=== PATIENT | male | born 1960 | race Two or more races ===

== ENCOUNTER 2019-07-09 14:32 | Inpatient (IN) | payer MEDICARE, MEDICAID ==
[~2019-07-09] VITALS: Ht 165.1 cm; Wt 67.6 kg
[2019-07-09] MEDS ORDERED: BLOOD SUGAR DIAGNOSTIC 1 EACH STRIP IN ONE (17:00)
[2019-07-09] MEDS ORDERED: MAGNESIUM HYDROXIDE 30 ML UDC PO PRN (17:00)
[2019-07-09] MEDS ORDERED: MAG HYDROX/AL HYDROX/SIMETH 30 ML UDC PO PRN (17:00)
[2019-07-09 17:43] VITALS: BP 145/99
[2019-07-09 17:51] LABS: ALBUMIN 3.4 g/dL (3.4-5.0); BILIRUBIN,TOTAL 0.5 mg/dL (0.2-1.0); CALCIUM, SERUM 8.5 mg/dL (8.5-10.1); CREATININE 0.9 mg/dL (0.6-1.3); POTASSIUM 4.3 mmol/L (3.5-5.1); TOTAL PROTEIN, SERUM 6.6 g/dL (6.4-8.2)
--- NOTE | 2019-07-09 18:42 | NUR ---
GPS/RN-NOTES ADMITTED 58 YEARS OLD CYMRO MALE PATIENT ON 5150 FOR GD ADULT. PATIENT WAS UNDER THE CARE OF DR. ANDERSON( PSYCHIATRIST) AND DR. WREN ( CERTIFIED NURSES' AIDE) BOTH MADE AWARE OF THE ADMISSION. UPON FACE TO FACE ASSESSMENT PATIENT ALERT ORIENTED X2 AMBULATORY WITH STEADY GAIT.HOLD WAS VERIFIED AND ADVISEMENT GIVEN TO THE PATIENT .PATIENT DENIES SI/HI AT THIS TIME. PATIENT'S RIGHT GIVEN AND WAS DISCUSS WITH UNDERSTANDING. CONTRABAND AND FULL BODY ASSESSMENT DONE. PATIENT WAS ORIENTED IN THE UNIT AND UNIT POLICIES.PATIENT'S JASON BAILEY ([phone]) WAS AWARE OF PATIENT ADMISSION. MRSA DONE AND SENT TO LAB. WILL ENDORSE TO INCOMING NURSE FOR THE PROCESS PLAN AND CONTINUITY OF CARE .
[2019-07-09 20:00] VITALS: BP 127/62
[2019-07-10] MEDS: TEMAZEPAM 7.5 MG CAPSULE PO PRN ×2 (00:39→22:33)
[2019-07-10] MEDS ORDERED: ASPI-1169 PO (07:13)
[2019-07-10] MEDS ORDERED: LATA2.5D7 EACHEYE (07:13)
[2019-07-10] MEDS ORDERED: LOSA50TA39 PO (07:13)
[2019-07-10 10:15] LABS: CALCIUM, SERUM 9.1 mg/dL (8.5-10.1); CREATININE 1.2 mg/dL (0.6-1.3); POTASSIUM 4.7 mmol/L (3.5-5.1)
[2019-07-10 10:21] LABS: CHOLESTEROL 159 mg/dL (<200); HDL CHOLESTEROL 55 mg/dL (40-60); LDL 98 mg/dL (0-99); TRIGLYCERIDES 55 mg/dL (30-150)
[2019-07-10] MEDS: OLANZAPINE 5 MG TABLET PO SCH ×2 (13:21→22:32)
[2019-07-10 16:00] VITALS: BP_SYST 100; BP_SYST 137; BP_DIAS 55; BP_DIAS 68
[2019-07-10 20:00] VITALS: BP 123/73
[2019-07-11 07:49] LABS: BASOPHILS # (AUTO) 0.1 /CMM (0.0-0.2); EOSINOPHILS % (AUTO) 2.3 % (0.0-6.0); HEMATOCRIT 42 % (39-51); HEMOGLOBIN 14.4 g/dL (13.5-17.5); LYMPHOCYTES # (AUTO) 2.1 /CMM (0.8-4.8); LYMPHOCYTES % (AUTO) 33.4 % (20.0-44.0); MEAN CORPUSCULAR HGB CONC 35 g/dl (31.0-36.0); MEAN CORPUSCULAR VOLUME 92 fL (80-96); MONOCYTES # (AUTO) 0.6 /CMM (0.1-1.30); MONOCYTES % (AUTO) 9.4 % (2.0-12.0); NEUTROPHILS # (AUTO) 3.4 /CMM (1.8-8.9); NEUTROPHILS % (AUTO) 53.9 % (43.0-81.0); PLATELET COUNT (AUTO) 155 /CMM (150-450); RED BLOOD CELL COUNT(AUTO) 4.54 MIL/uL (4.5-6.0); WHITE BLOOD COUNT (AUTO) 6.3 K/uL (4.3-11.0)
[2019-07-11 08:00] VITALS: BP 148/72
[2019-07-11 08:14] LABS: ALBUMIN 3.4 g/dL (3.4-5.0); CREATININE 0.9 mg/dL (0.6-1.3); POTASSIUM 4.2 mmol/L (3.5-5.1); TOTAL PROTEIN, SERUM 6.5 g/dL (6.4-8.2)
[2019-07-11] MEDS: OLANZAPINE 5 MG TABLET PO SCH (08:36)
[2019-07-11 16:00] VITALS: BP 112/65
[2019-07-11 20:00] VITALS: BP 108/54
[2019-07-11] MEDS: LATANOPROST EYE DROP 0.005% 2.5 ML BOTTLE EACHEYE SCH (21:06)
[2019-07-12] MEDS: TEMAZEPAM 7.5 MG CAPSULE PO PRN ×2 (00:38→21:24)
[2019-07-12] MEDS: LORAZEPAM 0.5 MG TABLET PO PRN ×3 (03:01→23:41)
[2019-07-12 08:00] VITALS: BP 129/75
[2019-07-12] MEDS: LOSARTAN POTASSIUM 50 MG TABLET PO SCH (08:36)
[2019-07-12] MEDS: OLANZAPINE 5 MG TABLET PO SCH ×3 (08:36→16:08)
[2019-07-12] MEDS: ASPIRIN 81 MG TAB.CHEW PO SCH (08:36)
--- NOTE | 2019-07-12 13:12 | NUR ---
Initial Discharge Plan: Pt. currently resides at [facility] located at [address] [place] [address]; . Per pt's sister Leeann, she would like for the pt. to go to a different facility stating the current facility is unable to meet pt's needs. Leeann would like a facility closer to [place], where she resides. WILLIAM will work with the pt and the MD regarding appropriate discharge planning. SW will form a safe and proper discharge plan. WILLIAM did contact [facility] and spoke with Vilma who informed SW they will accept the pt. back to their facility, if pt. chooses to return.
[2019-07-12 16:00] VITALS: BP 120/65
[2019-07-12 19:40] VITALS: BP 128/69
[2019-07-12] MEDS: LATANOPROST EYE DROP 0.005% 2.5 ML BOTTLE EACHEYE SCH (21:25)
[2019-07-13 08:00] VITALS: BP_SYST 127; BP_SYST 128; BP_DIAS 50; BP_DIAS 58
[2019-07-13] MEDS: LORAZEPAM 0.5 MG TABLET PO PRN (08:51)
[2019-07-13] MEDS: ASPIRIN 81 MG TAB.CHEW PO SCH (08:51)
[2019-07-13] MEDS: LOSARTAN POTASSIUM 50 MG TABLET PO SCH (08:51)
[2019-07-13] MEDS: OLANZAPINE 5 MG TABLET PO SCH ×3 (08:51→16:58)
--- NOTE | 2019-07-13 18:35 | NUR ---
Pt found laying on the floor in the dining room. staffed had asked patient several times to get up and lay in his bed if he is going to lay down but he refused get up. staff trying to help him up when he suddenly became combative; started punching, kicking staff. pt had to be physically restraint for his safety and the staff. it took several eladio staff and a professional security officer to carefully get him up and assist him to jose miguel-chair. once patient was seated in the eladio-chair patient became calm and passive. pt currently resting at this time. assessed patient for injury; no injury has occurred during the restraint. dr. aida arredondo.
--- NOTE | 2019-07-13 19:30 | NUR ---
GPS RN NOTE, RECEIVED PATIENT AWAKE AND IN RODRIGO CHAIR, NO S/S OR COMPLAINTS OF PAIN AT THIS TIME. PATIENT IS DISPLAYING NO S/S OF APPARENT DISTRESS AT THIS TIME. PATIENT BREATHING IS UNLABORED WITH EQUAL RISE AND FALL OF THE CHEST. PATIENT IS ALERT AND ORIENTED X 2 ON ROOM AIR WITH A SPO2 94 %. PATIENT IS COMPLIANT WITH MEDICATION, DISORGANIZED, CONFUSED, SUSPICIOUS, PARANOID, AGGRESSIVE, AND NEEDS CONSTANT REORIENTATION. PATIENT DENIES SUICIDE IDEATIONS AND HOMICIDAL IDEATIONS AT THIS TIME. PATIENT HAS NO NEEDS AT THIS TIME. PATIENT EDUCATED ON THE USE OF THE CALL REGALADO. PATIENT BED SIDE RAILS UP X 2 FOR SAFETY, BED IS LOCKED AND LOW. WILL CONTINUE TO MONITOR Q15 MIN WITH THE HELP OF STAFF TO MAINTAIN SAFETY.
[2019-07-13 20:13] VITALS: BP 129/64
[2019-07-13] MEDS: ACETAMINOPHEN 325 MG TABLET PO PRN (20:17)
--- NOTE | 2019-07-13 20:17 | NUR ---
GPS RN NOTE, PATIENT HAS A COMPLAINT OF CHRONIC LEFT SHOULDER PAIN AT 2 OUT OF 10 ON THE PAIN SCALE AND IS REQUESTING TYLENOL AT THIS TIME. PATIENT VITAL SIGNS ARE STABLE. GAVE TYLENOL 650 MG PO Q6HR PRN ORDERED. WILL REASSESS FOR PAIN AND I WILL CONTINUE TO MONITOR THIS PATIENT.
[2019-07-13] MEDS: LATANOPROST EYE DROP 0.005% 2.5 ML BOTTLE EACHEYE SCH (22:05)
[2019-07-13] MEDS: TEMAZEPAM 7.5 MG CAPSULE PO PRN (23:05)
--- NOTE | 2019-07-13 23:05 | NUR ---
GPS RN NOTE, PATIENT HAS A COMPLAINT OF NOT BEING ABLE TO SLEEP AND IS REQUESTING RESTORIL AT THIS TIME. PATIENT VITAL SIGNS ARE STABLE. GAVE RESTORIL 7.5MG PO HS PRN. WILL REASSESS FOR INSOMNIA AND I WILL CONTINUE TO MONITOR THIS PATIENT.
[2019-07-14] MEDS: ASPIRIN 81 MG TAB.CHEW PO SCH (09:00)
[2019-07-14] MEDS: LOSARTAN POTASSIUM 50 MG TABLET PO SCH (09:00)
[2019-07-14] MEDS: OLANZAPINE 5 MG TABLET PO SCH ×3 (09:00→17:00)
[2019-07-14] MEDS: risperiDONE-M 0.5 MG TAB.RAPDIS PO SCH ×2 (10:00→17:00)
--- NOTE | 2019-07-14 10:08 | NUR ---
GPS/RN-NOTES PATIENT REFUSED ALL 0900AM MEDICATIONS ,VITAL SIGNS TAKEN AND REFUSED BREAKFAST DESPITE ENCOURAGEMENT AND EXPLAINED RISK AND BENEFITS. PATIENT GETS ANGRY AND STATED" NO". OFFERED X3
--- NOTE | 2019-07-14 14:00 | NUR ---
GROUP NOTE: SW encouraged pt to participate in group therapy on this present day to discuss "positive coping skills." Pt has Dementia and unable to engage in a meaningful conversation. Pt is only alert to his name with disorganized thought process and speech. Pt unable to participate in a group discussion.
--- NOTE | 2019-07-14 16:15 | NUR ---
WILLIAM faxed a referral to [facility] to the fax number: [phone].
--- NOTE | 2019-07-14 16:20 | NUR ---
WILLIAM called the pts sister, Leeann , and informed her that the SW sent a referral to [facility].
--- NOTE | 2019-07-14 17:37 | NUR ---
GPS/RN-NOTES PATIENT STILL REFUSED ALL 1700 MEDICATIONS AND REFUSED TO EAT DESPITE ENCOURAGEMENT.EXPLAINED RISK AND BENEFITS. OFFERED X3.PATIENT ISOLATIVE IN THE ROOM PREFERS TO SLEEP DURING THE SHIFT.CHARGE NURSE AWARE .
[2019-07-14 20:12] VITALS: BP_SYST 134; BP_SYST 148; BP_DIAS 75; BP_DIAS 80
[2019-07-14] MEDS: LATANOPROST EYE DROP 0.005% 2.5 ML BOTTLE EACHEYE SCH (21:41)
[2019-07-14] MEDS: ACETAMINOPHEN 325 MG TABLET PO PRN (23:30)
[2019-07-14] MEDS: TEMAZEPAM 7.5 MG CAPSULE PO PRN (23:30)
[2019-07-15 08:00] VITALS: BP 131/80
--- NOTE | 2019-07-15 08:17 | NUR ---
Jo ([phone]) from [facility] called the SW and stated that the pt was accepted to their facility.
--- NOTE | 2019-07-15 08:26 | NUR ---
Probable Cause Hearing Notification: WILLIAM called the pts sister, Leeann , and left her a voicemail informing her that the pt has a PC hearing today and explained what the hearing entails. WILLIAM also informed her that the pt was accepted to [facility].
[2019-07-15] MEDS: ASPIRIN 81 MG TAB.CHEW PO SCH (08:41)
[2019-07-15] MEDS: LOSARTAN POTASSIUM 50 MG TABLET PO SCH (08:41)
[2019-07-15] MEDS: OLANZAPINE 5 MG TABLET PO SCH ×3 (08:41→16:27)
[2019-07-15] MEDS: risperiDONE-M 0.5 MG TAB.RAPDIS PO SCH ×2 (08:41→16:27)
--- NOTE | 2019-07-15 08:47 | NUR ---
RN NOTE: PATIENT WAS UNABLE TO SWALLOW PILLS. PULLED OUT AGAIN FROM [employer] TO ADMINISTER NOT GIVEN MEDS.
--- NOTE | 2019-07-15 15:11 | NUR ---
Group Note: SW encouraged pt to participate in group therapy on this present day to discuss "discharge planning" but the pt has dementia and unable to engage in a meaningful conversation. Pt is only alert to his name with disorganized thought process and speech. Pt is not able to participate in group therapy.
[2019-07-15 16:00] VITALS: BP 124/77
[2019-07-15 20:36] VITALS: BP 132/74
[2019-07-15] MEDS: LATANOPROST EYE DROP 0.005% 2.5 ML BOTTLE EACHEYE SCH (21:11)
[2019-07-15] MEDS: LORAZEPAM 0.5 MG TABLET PO PRN (23:06)
[2019-07-16] MEDS: TEMAZEPAM 7.5 MG CAPSULE PO PRN ×2 (01:10→22:30)
[2019-07-16 08:00] VITALS: BP 115/64
[2019-07-16] MEDS: ASPIRIN 81 MG TAB.CHEW PO SCH (08:55)
[2019-07-16] MEDS: LOSARTAN POTASSIUM 50 MG TABLET PO SCH (09:04)
[2019-07-16] MEDS: risperiDONE-M 0.5 MG TAB.RAPDIS PO SCH ×3 (09:04→16:39)
[2019-07-16] MEDS: BENZTROPINE MESYLATE (1 MG) 1 MG TABLET PO SCH ×3 (09:05→16:39)
[2019-07-16] MEDS: LORAZEPAM 0.5 MG TABLET PO SCH ×3 (09:05→16:39)
--- NOTE | 2019-07-16 15:12 | NUR ---
WILLIAM met with the pts sister and brother in law once the PC hearing was conducted and informed them of the results and stated that the pt is going to be discharged to [facility] on Friday.
--- NOTE | 2019-07-16 15:23 | NUR ---
GROUP NOTE: SW encouraged pt to participate in group therapy on this present day to discuss "discharge planning" Pt has Dementia and unable to engage in a meaningful conversation. Pt is only alert to his name with disorganized thought process and speech. Pt unable to participate in a group discussion.
[2019-07-16 16:00] VITALS: BP 119/69
[2019-07-16] MEDS: LORAZEPAM 0.5 MG TABLET PO PRN (19:49)
[2019-07-16 20:00] VITALS: BP 100/53
[2019-07-16] MEDS: LATANOPROST EYE DROP 0.005% 2.5 ML BOTTLE EACHEYE SCH (21:33)
[2019-07-17 08:00] VITALS: BP 114/99
[2019-07-17] MEDS: BENZTROPINE MESYLATE (1 MG) 1 MG TABLET PO SCH ×3 (09:09→16:12)
[2019-07-17] MEDS: ASPIRIN 81 MG TAB.CHEW PO SCH (09:09)
[2019-07-17] MEDS: risperiDONE-M 0.5 MG TAB.RAPDIS PO SCH ×3 (09:09→16:12)
[2019-07-17] MEDS: LORAZEPAM 0.5 MG TABLET PO SCH ×3 (09:09→16:12)
[2019-07-17] MEDS: LOSARTAN POTASSIUM 50 MG TABLET PO SCH (09:10)
[2019-07-17 16:00] VITALS: BP 105/68
[2019-07-17 20:00] VITALS: BP 102/65
[2019-07-17] MEDS: TEMAZEPAM 7.5 MG CAPSULE PO PRN (21:49)
[2019-07-17] MEDS: LATANOPROST EYE DROP 0.005% 2.5 ML BOTTLE EACHEYE SCH (21:50)
--- NOTE | 2019-07-18 06:31 | NUR ---
GPS-RN PATIENT IS COMBATIVE, AGITATED, HITTING AND STRIKING OUT AT STAFF WHILE CARE IS BEING PROVIDED. REDIRECTED PT'S BEHAVIOR. 0636- ADMINISTERED ATIVAN 0.5MG PO GIVEN ORDERED, TOLERATED WELL. APPROACHED IN A CALM AND UNHURRIED MANNER, EXPLAINED TO PATIENT PRIOR TO RENDERING CARE. ASSISTED PT. TO THE BATHROOM. PATIENT IS CALM AND COOPERATIVE AT THIS TIME. PATIENT MADE COMFORTABLE IN BED. SAFETY PRECAUTIONS IN PLACE. WILL CONTINUE TO MONITOR Q15MIN ROUNDS FOR SAFETY AND BEHAVIOR. WILL ENDORSE TO THE DAY SHIFT NURSE FOR CONTINUITY OF CARE.
[2019-07-18] MEDS: LORAZEPAM 0.5 MG TABLET PO PRN (06:36)
[2019-07-18 08:00] VITALS: BP 108/72
[2019-07-18] MEDS: ASPIRIN 81 MG TAB.CHEW PO SCH (08:13)
[2019-07-18] MEDS: LOSARTAN POTASSIUM 50 MG TABLET PO SCH (08:13)
[2019-07-18] MEDS: BENZTROPINE MESYLATE (1 MG) 1 MG TABLET PO SCH ×3 (08:13→17:00)
[2019-07-18] MEDS: risperiDONE-M 0.5 MG TAB.RAPDIS PO SCH ×3 (08:14→17:00)
[2019-07-18] MEDS: LORAZEPAM 0.5 MG TABLET PO SCH ×3 (08:14→17:00)
[2019-07-18 16:03] VITALS: BP 110/74
--- NOTE | 2019-07-18 19:17 | NUR ---
GPS/RN ENDORSED PT TO WALI DAWSON AND MARIE METCALF FOR CONTINUITY OF CARE. PT IS AROUSABLE ,REPORT MADE THAT PT MEDICATED IN AM ONLY TODAY D/T PT REFUSED MEDS FOR [address] ZAHIDA SERRANO.
[2019-07-18] MEDS: LATANOPROST EYE DROP 0.005% 2.5 ML BOTTLE EACHEYE SCH (21:40)
--- NOTE | 2019-07-18 21:40 | NUR ---
GPS-RN PATIENT REFUSED SCHEDULED EYE DROPS FOR TONIGHT AND REFUSED INITIAL VITAL SIGNS ASSESSMENT WELL DESPITE OF EDUCATION PROVIDED. PATIENT STILL REFUSED. WILL ENDORSE TO THE DAY SHIFT NURSE ACCORDINGLY.
[2019-07-19 08:00] VITALS: BP 97/58
--- NOTE | 2019-07-19 08:50 | NUR ---
WILLIAM called the pts sister, Leeann , and left a voicemail to inform her that the pt will be discharged to [facility] today.
--- NOTE | 2019-07-19 08:51 | NUR ---
WILLIAM contacted Radha ([phone]) from [facility] and informed him that the pt will be discharged today.
[2019-07-19 09:00] VITALS: BP 108/60
[2019-07-19] MEDS: LOSARTAN POTASSIUM 50 MG TABLET PO SCH (09:00)
[2019-07-19] MEDS: risperiDONE-M 0.5 MG TAB.RAPDIS PO SCH (09:22)
[2019-07-19] MEDS: BENZTROPINE MESYLATE (1 MG) 1 MG TABLET PO SCH (09:22)
[2019-07-19] MEDS: LORAZEPAM 0.5 MG TABLET PO SCH (09:22)
[2019-07-19] MEDS: ASPIRIN 81 MG TAB.CHEW PO SCH (09:22)
--- NOTE | 2019-07-19 09:33 | NUR ---
WILLIAM faxed updated notes to [facility] with attention to Radha to the fax number: [phone] and [phone].
--- NOTE | 2019-07-19 12:08 | NUR ---
GPS/RN-NOTES DISCHARGE PATIENT TODAY TO [facility] TODAY. DR. CARNEY AND DR. WREN AWARE AND AGREES OF PATIENT DISCHARGE.REPORT WAS GIVEN TO FACILITY DESK NURSE( TIMMY). PATIENT DID NOT VERBALIZE SI/HI,DENIES VISUAL/AUDITORY HALLUCINATIONS AT THE TIME OF DISCHARGE. PATIENT LEFT THE UNIT IN STABLE CONDITION ALERT ORIENTED X2 AMBULATORY STEADY GAIT.PATIENT WAS TELEPHONE ADVICE NURSE BY AMBULANCE VIA GURNEY WITH TWO STAFF ASSIST.PER PATIENT SISTER RUBIN MADE AWARE OF THE DISCHARGE. Addendum: 07/19/19 at 1523 by TIGIST MADRID RN IN ADDITION TO MY ABOVE NOTES, PATIENT'S SISTER RUBIN [id number] WILL COME TO TELEPHONE ADVICE NURSE PATIENT'S WATCH TODAY OR TOMORROW. THE WATCH IS KEPT IN THE NURSE STATION ON THE FLEXIBLE NANNY BOARD. Addendum: 07/19/19 at 1826 by TIGIST MADRID RN CORRECTIONS ON MY ABOVE NOTES DR. ANDERSON NOT DR. CARNEY (PSYCHIATRIST) AWARE OF THE DISCHARGE.
--- NOTE | 2019-07-19 15:11 | NUR ---
Discharge Note: Pt was discharged to [facility] ([facility]) located at [address] [place] [address]; ([phone]). Pt was transported via [facility] (Trip #[id number]) at 12PM. Pt�s sister, Leeann , has been notified of the discharge. Upon discharge, the pt appeared to be in a euthymic mood and presented with a calm affect. Pt denied both suicidal and homicidal ideation as well as auditory and visual hallucinations. Pt will continue to be under the care of his psychiatrist, Dr. Carmona, located at [address] [address]; and his coal drier operator, Dr. Amador, located at [address] [place] [address]; .
== END 2019-07-19 12:10 | DRG 885 ==
LOC: GPS 15:38
PROVIDERS: ADMIT Psychiatry & Neurology Psychosomatic Medicine; ATTEND Internal Medicine
DX: F29 Unspecified psychosis not due to a substance or known physiological condition (principal); F01.50 Vascular dementia, unspecified severity, without behavioral disturbance, psychotic disturbance, mood disturbance, and anxiety; E11.22 Type 2 diabetes mellitus with diabetic chronic kidney disease; I12.9 Hypertensive chronic kidney disease with stage 1 through stage 4 chronic kidney disease, or unspecified chronic kidney disease; E78.5 Hyperlipidemia, unspecified; F32.9 Major depressive disorder, single episode, unspecified; E11.42 Type 2 diabetes mellitus with diabetic polyneuropathy; M81.0 Age-related osteoporosis without current pathological fracture; I25.2 Old myocardial infarction; Z86.74 Personal history of sudden cardiac arrest; H40.10X0 Unspecified open-angle glaucoma, stage unspecified; Z88.0 Allergy status to penicillin; N18.2 Chronic kidney disease, stage 2 (mild)
CPT/HCPCS: 36415; 80048-TC; 80053-TC; 80061-TC; 82962-TC; 85025-TC; 87081-TC

== ENCOUNTER 2019-12-31 12:32 | Inpatient (IN) | payer MEDICARE, MEDICAID ==
[~2019-12-31] VITALS: Ht 180.3 cm; Wt 63.5 kg
[~2019-12-31 12:32] MED LIST: ASPI-1169 PO; LATA2.5D7 EACHEYE; LOSA50TA39 PO
--- NOTE | 2019-12-31 12:40 | NUR ---
BIB [facility] C/O MORE ALTERED than normal with dysuria. PATIENT A/OX1-2, BREATHING EVEN AND UNLABORED, NO SOB NOTED, NEEDS ATTENDED. KEPT COMFORTABLE.
[2019-12-31] MEDS ORDERED: DOCU-141 PO (13:01)
[2019-12-31] MEDS ORDERED: BENZ2TAB7 PO (13:01)
[2019-12-31] MEDS ORDERED: ASPI-1152 PO (13:01)
[2019-12-31] MEDS ORDERED: ACET-868 PO (13:01)
[2019-12-31] MEDS ORDERED: LORA-259 PO (13:01)
[2019-12-31] MEDS ORDERED: MAGN400O6 PO (13:01)
[2019-12-31] MEDS ORDERED: RISP0.2515 PO ×2 (13:01)
[2019-12-31] MEDS ORDERED: MAG30ORA PO (13:01)
[2019-12-31] MEDS ORDERED: ATOR40TA PO (13:01)
--- NOTE | 2019-12-31 13:25 | NUR ---
IV LINE ESTABLISHED, BLOOD DRAWN AND SENT TO LAB.
[2019-12-31 13:34] LABS: BASOPHILS # (AUTO) 0.1 /CMM (0.0-0.2); BASOPHILS % (AUTO) 0.9 % (0.0-2.0); EOSINOPHILS % (AUTO) 0.8 % (0.0-6.0); HEMATOCRIT 38 % (39-51); HEMOGLOBIN 13.2 g/dL (13.5-17.5); LYMPHOCYTES # (AUTO) 0.8 /CMM (0.8-4.8); LYMPHOCYTES % (AUTO) 12.5 % (20.0-44.0); MEAN CORPUSCULAR HGB CONC 35 g/dl (31.0-36.0); MEAN CORPUSCULAR VOLUME 91 fL (80-96); MONOCYTES # (AUTO) 0.5 /CMM (0.1-1.30); MONOCYTES % (AUTO) 7.4 % (2.0-12.0); NEUTROPHILS # (AUTO) 5.3 /CMM (1.8-8.9); NEUTROPHILS % (AUTO) 78.4 % (43.0-81.0); PLATELET COUNT (AUTO) 163 /CMM (150-450); RED BLOOD CELL COUNT(AUTO) 4.17 MIL/uL (4.5-6.0); WHITE BLOOD COUNT (AUTO) 6.8 K/uL (4.3-11.0)
--- NOTE | 2019-12-31 13:37 | NUR ---
URINE SAMPLE OBTAINED FROM PATIENT, SENT TO LAB.
[2019-12-31 13:44] LABS: APPEARANCE,URINE Clear (CLEAR); BILIRUBIN,URINE Negative (NEGATIVE); BLOOD, URINE Negative Ery/uL (NEGATIVE); COLOR,URINE Yellow (YELLOW); KETONES,URINE Negative (NEGATIVE); LEUKOCYTE ESTERASE ,URINE Negative (NEGATIVE); NITRITE, URINE Negative (NEGATIVE); PROTEIN,URINE Negative (NEGATIVE); UGLUCOSE Negative (NEGATIVE)
[2019-12-31 13:57] LABS: BACTERIA,URINE Few /HPF (None Seen); RBC,URINE 0-2 /HPF (0-2); SQUAMOUS EPITHELIAL CELL,UR Rare /HPF (None Seen); WBC,URINE 0-2 /HPF (0-3)
[2019-12-31 14:06] LABS: CALCIUM, SERUM 8.6 mg/dL (8.5-10.1); CARBON DIOXIDE 32 mmol/L (21-32); CHLORIDE 106 mmol/L (98-107); GLUCOSE 114 mg/dL (74-106); POTASSIUM 4.5 mmol/L (3.5-5.1); SODIUM SERUM 142 mmol/L (136-145); UREA NITROGEN, BLOOD 22 mg/dL (7-18)
[2019-12-31 14:12] LABS: ALANINE AMINOTRANSFERASE 22 U/L (12-78); ALBUMIN 3.3 g/dL (3.4-5.0); ALKALINE PHOSPHATASE 117 U/L (46-116); ASPARTATE AMINOTRANSFERASE 17 U/L (15-37); BILIRUBIN,DIRECT 0.2 mg/dL (0.0-0.2); BILIRUBIN,TOTAL 0.6 mg/dL (0.2-1.0); TOTAL PROTEIN, SERUM 6.4 g/dL (6.4-8.2)
--- NOTE | 2019-12-31 14:42 | NUR ---
ROOM 114-1 ASSIGNED
--- NOTE | 2019-12-31 14:56 | NUR ---
REPORT GIVEN TO SONIA DAWSON FOR URIEL
[2019-12-31] MEDS ORDERED: MAG HYDROX/AL HYDROX/SIMETH 30 ML UDC PO PRN ×2 (15:30)
[2019-12-31] MEDS ORDERED: Z GUARD REMEDY 2 OZ OINT TP PRN (15:30)
[2019-12-31] MEDS ORDERED: HYDROCODONE/APAP 5/325MG 1 EACH TABLET PO PRN (15:30)
[2019-12-31] MEDS ORDERED: ONDANSETRON HCL/PF 4 MG/2 ML VIAL IVP PRN (15:30)
[2019-12-31] MEDS ORDERED: ACETAMINOPHEN 325 MG TABLET PO PRN ×2 (15:30)
[2019-12-31] MEDS ORDERED: MAGNESIUM HYDROXIDE 30 ML UDC PO PRN ×2 (15:30)
--- NOTE | 2019-12-31 16:06 | NUR ---
PATIENT TRANSFERRED TO ROOM 114-1 VIA ACLS PROTOCOL, PATIENT IN STABLE CONDITION, SISTER AT BEDSIDE. ENDORSED TO SONIA DAWSON.
--- NOTE | 2019-12-31 16:10 | NUR ---
VETERINARY PHYSIOLOGIST NOTE: PATIENT REPORT GIVEN BY EUNICE CONLEY FROM ER. PATIENT ARRIVED IN UNIT VIA GURNEY WITH 2 ER STAFF AND PATIENT'S SISTER. PATIENT IS ALERT, AWAKE AND ORIENTED X2. ABLE TO MAKE NEEDS KNOWN. MADE KNOWN BY SISTER TO HAVE HX OF DEPRESSION, ANXIETY AND SCHIZOPHRENIA. PATIENT CURRENTLY COOPERATIVE AND WITHDRAWN BUT SISTER INFORMED NURSE THAT HE HAD SAID THAT "HE WILL HIT HER IF THEY DON'T LET HIM LEAVE". AWOL RISK IDENTIFIED AND WILL INFORM RACK PUNCHER ABOUT THE PROBABLE NEED FOR SITTER. SKIN ASSESSMENT REFUSED BY PATIENT. BELONGING FORM SIGNED. ADMISSION ASSESSMENTS MADE. WILL REVIEW ORDERS. CALL LIGHT IN REACH. BED LOCKED, LOW AND AT SEMI-CARDOSO'S POSITION. BED ALARM ON. WILL CONTINUE TO MONITOR PATIENT.
[2019-12-31 16:15] VITALS: BP 121/85
[2019-12-31] MEDS: LORAZEPAM 1 MG TABLET PO SCH (16:46)
[2019-12-31] MEDS: risperiDONE 0.25 MG TABLET PO SCH ×2 (16:46→21:48)
--- NOTE | 2019-12-31 19:00 | NUR ---
RN CLOSING NOTE: PATIENT IS IN BED AND ASLEEP. ON ROOM AIR AND TOLERATING WELL. NO SOB, NO RESPIRATORY DISTRESS NOTED. MADE KNOWN BY SISTER TO HAVE HX OF DEPRESSION, ANXIETY AND SCHIZOPHRENIA. IV SITE CLEAN, DRY, PATENT AND INTACT. TELE MONITOR REFUSED. CALL LIGHT IN REACH. BED LOCKED, LOW AND AT SEMI-CARDOSO'S POSITION. BED ALARM ON. WILL ENDORSED TO ONCOMING SHIFT.
--- NOTE | 2019-12-31 19:13 | NUR ---
RN OPENING NOTE RECEIVED PT ASLEEP, PT CURRENTLY NOT ON TELE MONITOR. PT REFUSED ,WILL OFFER AGAIN. PT CURRENTLY NOT ON IVF WILL ASK PATIENT. PT ON ROOM AIR. NO S/S OF RESPIRATORY DISTRESS OR DISCOMFORT. DR. MINOR ORDERED MODERATE INSULIN SLIDING SCALE. SAFETY MEASURES IN PLACE. CALL LIGHT IN REACH.
[2019-12-31] MEDS ORDERED: DEXTROSE 50%-WATER 50 ML DISP.SYRIN IV PRN (19:30)
[2019-12-31] MEDS: IV NS 0.9% 1,000 ML IV PRN (19:54)
[2019-12-31 20:00] VITALS: BP 145/73
--- NOTE | 2019-12-31 20:09 | NUR ---
HTML WEB DEVELOPER NOTE PT AGREED TO HAVE TELE MONITOR BE PLACED. PT CURRENTLY SINUS RHYTHM. IVF STARTED TO RIGHT AC NS INFUSING AT 75ML/HR. IV SITE PATENT AND INTACT. WILL CONTINUE TO MONITOR PT.
[2019-12-31] MEDS: ATORVASTATIN 40 MG TABLET PO SCH (21:47)
[2019-12-31] MEDS: LATANOPROST EYE DROP 0.005% 2.5 ML BOTTLE EACHEYE SCH (21:47)
[2019-12-31] MEDS: BLOOD SUGAR DIAGNOSTIC 1 EACH STRIP VI SCH (22:21)
[2019-12-31] MEDS: *INSULIN REGULAR(HUMULIN R)HUM 100 UNIT/ML VIAL SQ PRN (22:26)
--- NOTE | 2019-12-31 22:34 | NUR ---
BLOOD SUGAR 68. NO INSULIN ADMINISTERED PER MD ORDERS. ORANGE JUICE GIVEN WILL RECHECK IN 30 MINUTES.
--- NOTE | 2019-12-31 23:04 | NUR ---
RN NOTE RECHECKED BLOOD SUGAR AND IS 90.
[2020-01-01] VITALS: BP 145/83
[2020-01-01 04:00] VITALS: BP 135/82
--- NOTE | 2020-01-01 06:48 | NUR ---
RN CLOSING NOTE PT AWAKE IN BED ON TELE MONITOR SR. PT ON ROOM AIR. NO S/S OF RESPIRATORY DISTRESS OR DISCOMFORT. IV SITE TO RIGHT AC PATENT AND INTACT NS 75 ML/HR INFUSING. SAFETY MEASURES IN PLACE. SIDE RAILS UP, CALL LIGHT IN REACH. WILL ENDORSE TO AM NURSE FOR URIEL.
[2020-01-01 06:49] LABS: BASOPHILS # (AUTO) 0.1 /CMM (0.0-0.2); HEMATOCRIT 37 % (39-51); HEMOGLOBIN 13.2 g/dL (13.5-17.5); LYMPHOCYTES # (AUTO) 1.5 /CMM (0.8-4.8); LYMPHOCYTES % (AUTO) 26.1 % (20.0-44.0); MEAN CORPUSCULAR HGB CONC 35 g/dl (31.0-36.0); MEAN CORPUSCULAR VOLUME 89 fL (80-96); MONOCYTES # (AUTO) 0.6 /CMM (0.1-1.30); MONOCYTES % (AUTO) 9.8 % (2.0-12.0); NEUTROPHILS # (AUTO) 3.6 /CMM (1.8-8.9); NEUTROPHILS % (AUTO) 61.1 % (43.0-81.0); PLATELET COUNT (AUTO) 161 /CMM (150-450); RED BLOOD CELL COUNT(AUTO) 4.19 MIL/uL (4.5-6.0); WHITE BLOOD COUNT (AUTO) 5.8 K/uL (4.3-11.0)
[2020-01-01 07:06] LABS: CALCIUM, SERUM 8.6 mg/dL (8.5-10.1); CREATININE 0.7 mg/dL (0.6-1.3); MAGNESIUM 1.9 mg/dL (1.8-2.4); PHOSPHORUS 2.6 mg/dL (2.5-4.9); POTASSIUM 3.3 mmol/L (3.5-5.1)
[2020-01-01] MEDS: BLOOD SUGAR DIAGNOSTIC 1 EACH STRIP VI SCH ×4 (07:57→22:00)
[2020-01-01] MEDS ORDERED: POTASSIUM CHLORIDE 20 MEQ TAB.PRT.SR PO ONE (08:30)
--- NOTE | 2020-01-01 08:35 | NUR ---
patient resting in room - no complaints or concerns- safety precautions in place- received bedside sbar - vitals stable- will continue to monitor report and record
[2020-01-01] MEDS: LORAZEPAM 1 MG TABLET PO SCH ×3 (10:00→16:40)
[2020-01-01] MEDS: ASPIRIN EC 81 MG TABLET.DR PO SCH (10:00)
[2020-01-01] MEDS: DOCUSATE SODIUM 100 MG CAPSULE PO SCH (10:00)
[2020-01-01] MEDS: LOSARTAN POTASSIUM 50 MG TABLET PO SCH (10:00)
[2020-01-01 12:00] VITALS: BP 121/68
--- NOTE | 2020-01-01 12:00 | NUR ---
patient resting in room- no complaints or concerns- safety precautions in place- will continue to monitor report and record
[2020-01-01] MEDS: risperiDONE 0.25 MG TABLET PO SCH ×3 (12:07→22:00)
[2020-01-01] MEDS: INSULIN REGULAR, HUMAN 100 UNIT/ML 3 ML VIAL SQ PRN (13:08)
[2020-01-01 16:00] VITALS: BP 122/73
--- NOTE | 2020-01-01 16:00 | NUR ---
patient resting in room- no complaints or concerns- safety precautions in place- will continue to monitor report and record
--- NOTE | 2020-01-01 17:06 | NUR ---
patient resting in room- sister came to bedside and inquired about care-piv infusing- continuing to hydrate and push po fluids- tolerating diet- eating 100% of meals- safety precautions in place no complaints of pain -will continue to monitor report and record - will provide bedside sbar to pm rn
--- NOTE | 2020-01-01 19:20 | NUR ---
RN OPENING NOTE: RECEIVED PT IN BED, ASLEEP, EASILY AROUSABLE. ON ROOM AIR. NO DISTRESS NOTED. A&0X3-4. HAS RIGHT AC #18 AND RIGHT FA #20 W/ NS RUNNING AT 75CC/HR. BOTH LINES FLUSHED AND PATENT, CLEAN/DRY/INTACT. PT AMBULATORY W/ ASSISTANCE. BED IN LOWEST AND LOCKED POSITION, CALL LIGHT WITHIN REACH. WILL CONTINUE TO MONITOR.
[2020-01-01 20:00] VITALS: BP 140/75
[2020-01-01] MEDS: ATORVASTATIN 40 MG TABLET PO SCH (22:00)
[2020-01-01] MEDS: LATANOPROST EYE DROP 0.005% 2.5 ML BOTTLE EACHEYE SCH (22:00)
--- NOTE | 2020-01-01 22:15 | NUR ---
RN NOTE: PT REFUSED ALL 0 MEDS AND ACCUCHECK X3. EXPLAINED RISKS AND BENEFITS AND CONTINUED REFUSAL. CHARGE NURSE MADE AWARE. WILL CONTINUE TO MONITOR. Addendum: 01/01/20 at 2220 by KELLIE SANTO RN PT STATED "LEAVE ME THE FUCK ALONE. GET THE FUCK OUT OF MY ROOM."
[2020-01-01] MEDS: IV NS 0.9% 1,000 ML IV PRN (22:52)
[2020-01-02] MEDS: risperiDONE 0.25 MG TABLET PO SCH ×4 (00:21→22:00)
--- NOTE | 2020-01-02 00:25 | NUR ---
RN NOTE: PT NOTED TO BE OUT OF BED, WANDERING AROUND ROOM. ATTEMPTED TO ADMINISTER BEDTIME MEDICATIONS AND PT TOOK THE RISPERDAL. CHARGE NURSE AWARE. WILL CONTINUE TO MONITOR.
[2020-01-02 04:00] VITALS: BP 100/63
--- NOTE | 2020-01-02 06:36 | NUR ---
RN CLOSING NOTES: PT RESTING IN BED, AWAKE. A&OX3. STABLE ON RA. NO RESPIRATORY DISTRESS OR ACUTE CHANGES NOTED DURING SHIFT. IV SITE CDI. NO COMPLAINTS OF PAIN AT THIS TIME. KEPT PT CLEAN AND DRY. SAFETY MEASURES IN PLACE. BED IN LOWEST AND LOCKED POSITION, CALL LIGHT W/IN REACH. WILL ENDORSE TO AM NURSE FOR URIEL.
--- NOTE | 2020-01-02 07:00 | NUR ---
patient resting in room- no complaints or concerns-received bedside sbar- safety precautions in place- will continue to monitor report and record
[2020-01-02] MEDS: BLOOD SUGAR DIAGNOSTIC 1 EACH STRIP VI SCH ×4 (07:58→22:36)
[2020-01-02 08:00] VITALS: BP 141/80
[2020-01-02] MEDS: LORAZEPAM 1 MG TABLET PO SCH ×3 (08:04→16:17)
[2020-01-02] MEDS: ASPIRIN EC 81 MG TABLET.DR PO SCH (08:04)
[2020-01-02] MEDS: LOSARTAN POTASSIUM 50 MG TABLET PO SCH (08:04)
[2020-01-02] MEDS: DOCUSATE SODIUM 100 MG CAPSULE PO SCH (08:07)
[2020-01-02] MEDS: *INSULIN REGULAR(HUMULIN R)HUM 100 UNIT/ML VIAL SQ PRN (11:47)
--- NOTE | 2020-01-02 12:00 | NUR ---
patient resting in room- vitals stable - patient tolerating diet- urinating- completed treatment with pt -no complaints or concerns- safety precautions in place- will continue to monitor report and record
[2020-01-02 12:52] LABS: EOSINOPHILS % (AUTO) 1.3 % (0.0-6.0); HEMATOCRIT 36 % (39-51); HEMOGLOBIN 12.4 g/dL (13.5-17.5); LYMPHOCYTES # (AUTO) 0.8 /CMM (0.8-4.8); LYMPHOCYTES % (AUTO) 18.2 % (20.0-44.0); MEAN CORPUSCULAR HGB CONC 35 g/dl (31.0-36.0); MEAN CORPUSCULAR VOLUME 91 fL (80-96); MONOCYTES # (AUTO) 0.5 /CMM (0.1-1.30); MONOCYTES % (AUTO) 9.7 % (2.0-12.0); NEUTROPHILS # (AUTO) 3.3 /CMM (1.8-8.9); NEUTROPHILS % (AUTO) 69.8 % (43.0-81.0); PLATELET COUNT (AUTO) 127 /CMM (150-450); RED BLOOD CELL COUNT(AUTO) 3.92 MIL/uL (4.5-6.0); WHITE BLOOD COUNT (AUTO) 4.7 K/uL (4.3-11.0)
[2020-01-02 13:12] LABS: CALCIUM, SERUM 8.3 mg/dL (8.5-10.1); CREATININE 0.7 mg/dL (0.6-1.3); MAGNESIUM 1.8 mg/dL (1.8-2.4); PHOSPHORUS 2.9 mg/dL (2.5-4.9)
[2020-01-02 16:00] VITALS: BP_SYST 133; BP_SYST 138; BP_DIAS 72; BP_DIAS 78
--- NOTE | 2020-01-02 18:43 | NUR ---
WILL ENDORSE CARE TO PM RN- PATIENT RESTING IN ROOM- NO COMPLAINTS OR CONCERNS- SAFETY PRECAUTIONS IN PLACE - PATIENT TOLERATING DIET - WALKER AT BEDSIDE, WILL CONTINUE TO MONITOR REPORT AND RECORD
--- NOTE | 2020-01-02 19:20 | NUR ---
RN OPENING NOTES: RECEIVED PT IN BED, AWAKE, A&OX2-3. ON ROOM AIR, NO RESPIRATORY DISTRESS NOTED. HAS IV SITE ON RIGHT AC #18 AND RIGHT FA #20. LINES FLUSHED AND PATENT, C/D/I. HAS NS RUNNING AT 75CC/HR. FLUSHED AND PATENT, C/D/I. DENIES ANY PAIN AT THIS TIME. SAFETY MEASURES IN PLACE. BED IN LOWEST AND LOCKED POSITION, SIDE RAILS UP X2, CALL LIGHT W/IN REACH. WILL CONTINUE TO MONITOR.
[2020-01-02 20:00] VITALS: BP 98/56
[2020-01-02 20:05] VITALS: BP 98/56
[2020-01-02] MEDS: LATANOPROST EYE DROP 0.005% 2.5 ML BOTTLE EACHEYE SCH (22:00)
[2020-01-02] MEDS: ATORVASTATIN 40 MG TABLET PO SCH (22:00)
--- NOTE | 2020-01-02 22:05 | NUR ---
RN NOTE: NOTED PT W/ IV SITES PULLED OUT. CLEANED PT UP AND GOT ORDER FOR SOFT WRIST RESTRAINTS FROM DR. SYLVESTER. RESTRAINTS IN PLACE. CHARGE NURSE AWARE. WILL CONTINUE TO MONITOR. Addendum: 01/02/20 at 2343 by KELLIE SANTO RN STARTED TWO NEW IV LINES. RIGHT HAND #20 PATENT AND FLUSHING. LEFT HAND #22 PATENT AND FLUSHING.
--- NOTE | 2020-01-02 22:46 | NUR ---
RN NOTE: PT REFUSED ALL 2200 MEDS X3. EXPLAINED RISKS AND BENEFITS AND PT STILL STRONGLY REFUSED. CHARGE NURSE MADE AWARE. WILL CONTINUE TO MONITOR.
--- NOTE | 2020-01-03 02:36 | NUR ---
RN NOTES: PT NOTED TO HAVE BROKEN OUT OF SOFT WRIST RESTRAINTS AND PULLED OUT IV SITES. CHARGE NURSE MADE AWARE. STARTED 2 IV LINES IN LEFT AND RIGHT FA BOTH #22. WILL CONTINUE TO MONITOR.
[2020-01-03 04:00] VITALS: BP 146/82
[2020-01-03 04:57] VITALS: BP 146/82
--- NOTE | 2020-01-03 07:01 | NUR ---
RN CLOSING NOTES: PATIENT IN BED, AWAKE A&OX2. ON RA NO RESPIRATORY DISTRESS NOTED DURING SHIFT. HAS IV SITE ON R FA #22 AND L FA #22 BOTH PATENT AND FLUSHING. C/D/I. PT PULLED OUT PREVIOUS IV SITES DURING SHIFT. RECEIVED ORDER TO PLACE PT ON SOFT WRIST RESTRAINTS. ORDER CARRIED OUT. KEPT PT CLEAN AND DRY. NO PAIN NOTED AT THIS TIME. SAFETY MEASURES IN PLACE, BED IN LOWEST AND LOCKED POSTION, CALL LIGHT W/IN REACH. WILL ENDORSE TO AM NURSE FOR URIEL.
[2020-01-03] MEDS: BLOOD SUGAR DIAGNOSTIC 1 EACH STRIP VI SCH ×3 (07:44→17:30)
--- NOTE | 2020-01-03 07:45 | NUR ---
RN NOTES BS 75MG/DL, 0 COVERAGE
--- NOTE | 2020-01-03 07:48 | NUR ---
RN OPENING NOTES RECEIVE PATIENT IN BED, AWAKE A&OX2. ON RA NO RESPIRATORY DISTRESS NOTED. DENIES PAIN AT THIS TIME. IV SITE ON R FA #22 AND L FA #22 BOTH INTACT AND PATENT. PATIENT IS ON SOFT WRIST RESTRAINTS. SAFETY MEASURES IN PLACE, BED IN LOWEST AND LOCKED POSITION, CALL LIGHT W/IN REACH. WILL CONTINUE TO MONITOR.
[2020-01-03 08:00] VITALS: BP 141/72
[2020-01-03] MEDS: risperiDONE 0.25 MG TABLET PO SCH ×2 (08:41→17:00)
[2020-01-03] MEDS: ASPIRIN EC 81 MG TABLET.DR PO SCH (08:44)
[2020-01-03] MEDS: LOSARTAN POTASSIUM 50 MG TABLET PO SCH (08:44)
[2020-01-03] MEDS: LORAZEPAM 1 MG TABLET PO SCH ×3 (08:44→17:00)
[2020-01-03] MEDS: DOCUSATE SODIUM 100 MG CAPSULE PO SCH (08:44)
[2020-01-03 12:00] VITALS: BP 141/72
--- NOTE | 2020-01-03 12:00 | NUR ---
MS/RN NOTES PATIENT REFUSED TO EAT.
[2020-01-03] MEDS: INSULIN REGULAR, HUMAN 100 UNIT/ML 3 ML VIAL SQ PRN (12:12)
[2020-01-03 16:00] VITALS: BP 133/58
--- NOTE | 2020-01-03 18:26 | NUR ---
MS/RN NOTES PATIENT IS ALERT AND ORIENTED X2. DENIES PAIN AT THIS TIME. IN ROOM AND SATURATION IS AT 98%. RESPIRATION REGULAR AND UNLABORED. THE PATIENT IN NO APPARENT DISTRESS. SEEN AND EXAMINED BY MD WITH ORDERS MADE AND CARRIED OUT. ALL DUE MEDS WAS GIVEN. PATIENT DISCHARGED AT 1827. REPORT WAS GIVEN TO ALECIA DAWSON. THE PATIENT LEFT THE HOSPITAL IN STABLE CONDITION, ACCOMPANIED BY 2 EMT VIA AMBULANCE.
== END 2020-01-03 18:30 | DRG 682 ==
LOC: ER 12:38 → TELE1 15:03 → MEDSG1 01-01 09:38
PROVIDERS: ADMIT Internal Medicine; ATTEND Internal Medicine
DX: N17.0 Acute kidney failure with tubular necrosis (principal); E43 Unspecified severe protein-calorie malnutrition; G92 Toxic encephalopathy; Z68.1 Body mass index [BMI] 19.9 or less, adult; G25.9 Extrapyramidal and movement disorder, unspecified; F03.90 Unspecified dementia, unspecified severity, without behavioral disturbance, psychotic disturbance, mood disturbance, and anxiety; E86.0 Dehydration; E78.5 Hyperlipidemia, unspecified; D64.9 Anemia, unspecified; E88.09 Other disorders of plasma-protein metabolism, not elsewhere classified; M62.50 Muscle wasting and atrophy, not elsewhere classified, unspecified site; I10 Essential (primary) hypertension; E11.9 Type 2 diabetes mellitus without complications
CPT/HCPCS: 36415; 71045-TC; 80048-TC; 80061-TC; 80076-TC; 81000-TC; 82962-TC; 83605-TC; 83735-TC; 84100-TC; 84484-TC; 85025-TC; 85730-TC; 87040-TC; 87081-TC; 87086-TC; 97116-TC; 97530-TC; G0378; J1815; J7030